=== PATIENT | female | born 1960 | race Caucasian/White ===

== ENCOUNTER → 2016-07-21 | Outpatient (CLI) | payer BC ==
[~2016-07-21] MED LIST: [UNRECOGNIZED DRUG - CODE] PO
== END ==
LOC: WC.BC 16:26
DX: Z12.31 Encounter for screening mammogram for malignant neoplasm of breast (principal)
CPT/HCPCS: 77063; G0202

== ENCOUNTER → 2016-07-27 | Outpatient (CLI) | payer BC ==
--- NOTE | 2016-07-28 08:53 | DI ---
Indication: ITS.REASON: N95.0, vaginal discharge PROCEDURE: US PELVIC NON OB W/TRANS VAG: Encounter: Initial Comparison: None FINDINGS: Transvaginal and transabdominal pelvic imaging was performed. The uterus measures 8 x 3.1 x 4.4 cm. The parenchyma is mildly heterogeneous without fibroids. The endometrial stripe measures 4 mm in thickness. There is no evidence of focal endometrial mass. Left ovary was not identified. The right ovary appears normal and measures 1.5 x 0.8 x 1.4 cm. There are no abnormal adnexal masses detected. No free fluid. IMPRESSION: Unremarkable pelvic sonogram. .
== END ==
LOC: IMA 16:50
PROVIDERS: ATTEND Physician Assistant
DX: N95.0 Postmenopausal bleeding (principal)